=== PATIENT | female | born 2000 | race Two or more races ===

== ENCOUNTER 2022-12-31 19:15 | Inpatient (IN) ==
[2022-12-31] MEDS ORDERED: CARBOPROST TROMETHAMINE 250 MCG/ML AMP IM PRN (19:25)
[2022-12-31] MEDS ORDERED: METHYLERGONOVINE 0.2 MG/1 ML AMP IM PRN (19:25)
[2022-12-31] MEDS ORDERED: TRANEXAMIC ACID 1,000 MG in SODIUM CHLORIDE 0.9% 100 ML IV PRN (19:25)
[2022-12-31] MEDS ORDERED: BUTORPHANOL 2 MG/ML VIAL IV PRN (19:25)
[2022-12-31] MEDS ORDERED: ONDANSETRON 4 MG/2 ML VIAL IV PRN (19:25)
[2022-12-31] MEDS ORDERED: miSOPROStoL 200 MCG TABLET RECTAL PRN (19:25)
[2022-12-31] MEDS ORDERED: OXYTOCIN/LR 20 UNIT/1,000 ML BAG IV ONE (19:25)
[2022-12-31] MEDS: LACTATED RINGERS 1,000 ML IV SCH (19:30)
[2022-12-31 19:56] LABS: Basophils % 0.4 % (0.0-0.8); Eosinophils # 0.3 10*3/uL (0.0-0.87); Eosinophils % 3.5 % (0.00-10.9); Hematocrit 35.6 VOL% (35.7-47.0); Hemoglobin 12.2 GM/DL (12.0-16.0); Immature Granulocytes % 0.4 %; Immature Granulocytes Absolute 0.03 #; Lymphocytes % 28.8 % (21.3-54.2); Mean Corpuscular HGB Conc 34.3 GM/DL (32-36); Mean Corpuscular Volume 80.7 FL (87-102); Mean Platelet Volume 9.4 FL (9.6-12.0); Monocytes # 0.4 10*3/uL (0.11-0.8); Monocytes % 5.4 % (1.7-12.7); Neutrophils % 61.5 % (38.7-73.9); Platelet Count 284 T/CUMM (130-400); Red Blood Count 4.41 MC/CUMM (3.8-5.5); Red Cell Distribution Width 14.5 % (9.3-17.3); White Blood Count 7.05 T/CUMM (4-12)
[2022-12-31] MEDS ORDERED: INFLUENZA VIRUS VACCINE 0.5 ML SYRINGE IM ONE ×2 (20:09→20:30)
[2022-12-31 20:15] LABS: Alanine Aminotransferase 18 U/L (13-56); Albumin 2.7 G/DL (3.4-5.0); Alkaline Phosphatase 141 U/L (45-117); Aspartate Amino Transferase 20 U/L (0-37); Bilirubin,Total < 0.39 MG/DL (0.20-1.00); Blood Urea Nitrogen 8 MG/DL (7-18); Calcium 8.8 MG/DL (8.5-10.1); Carbon Dioxide 20 MMOL/L (21-32); Chloride 110 MMOL/L (98-107); Glucose 107 MG/DL (74-106); Osmolality,Calculated 276.4 MOS/KG (273-304); Potassium 3.4 MMOL/L (3.5-5.1); Sodium 140 MMOL/L (136-145)
[2023-01-01] MEDS: MEPERIDINE 50 MG/1 ML VIAL IV PRN ×2 (03:52→06:06)
[2023-01-01] MEDS ORDERED: OXYTOCIN/LR 20 UNIT/1,000 ML BAG IV SCH (05:30)
[2023-01-01] MEDS: LACTATED RINGERS 1,000 ML IV SCH ×3 (05:30→11:06)
[2023-01-01] MEDS ORDERED: hydrOXYzine HCL 25 MG/1 ML VIAL IM PRN (07:16)
[2023-01-01] MEDS ORDERED: CITRIC ACID/SODIUM CITRATE 30 ML UDCUP PO ONE (07:16)
[2023-01-01] MEDS ORDERED: FAMOTIDINE 20 MG/2 ML VIAL IV ONE (07:16)
[2023-01-01] MEDS ORDERED: NALOXONE 0.4 MG/ML VIAL IV PRN (07:16)
[2023-01-01] MEDS ORDERED: ONDANSETRON 4 MG/2 ML VIAL IV ONE (07:16)
[2023-01-01] MEDS ORDERED: diphenhydrAMINE 50 MG/1 ML VIAL IV PRN ×2 (07:16)
[2023-01-01] MEDS ORDERED: PROMETHAZINE 25 MG/1 ML VIAL IM ONE (07:16)
[2023-01-01] MEDS ORDERED: fentaNYL 2 MCG/ROPIV 0.2% EPID 100 ML EPIDURAL SCH (07:30)
[2023-01-01] MEDS: ePHEDrine 50 MG/ML VIAL IV PRN ×3 (09:50→10:05)
[2023-01-01] MEDS ORDERED: LACTATED RINGERS 1,000 ML IV ONE (11:07)
[2023-01-01 13:41] LABS: Cord Arterial Blood HCO3 20.6 MMOL/L
[2023-01-01 13:44] LABS: Cord Venous Blood HCO3 21.9 MMOL/L
[2023-01-01] MEDS ORDERED: MEASLES/MUMPS/RUBELLA VACCINE 0.5 ML VIAL SUBCUT ONE (16:44)
[2023-01-01] MEDS ORDERED: ACETAMINOPHEN 325 MG TABLET PO PRN (16:44)
[2023-01-01] MEDS ORDERED: BISACODYL 10 MG SUPP RECTAL PRN (16:44)
[2023-01-01] MEDS ORDERED: oxyCODONE/ACETAMINOPHEN 5-325 MG TABLET PO PRN ×2 (16:44)
[2023-01-01] MEDS ORDERED: IBUPROFEN 800 MG TABLET PO PRN (16:44)
[2023-01-01] MEDS ORDERED: BENZOCAINE 20%/MENTHOL 0.5% SPRAY 56 GM CAN TOP PRN (16:44)
[2023-01-01] MEDS ORDERED: WITCH HAZEL PADS 100/JAR TOP PRN (16:44)
[2023-01-01] MEDS ORDERED: LANOLIN 50% CREAM 0.3 OZ TUBE TOP PRN (16:44)
[2023-01-01] MEDS ORDERED: DIPH/TET/ACEL PERT BOOSTER VACCINE 0.5 ML VIAL IM ONE (16:44)
[2023-01-01] MEDS ORDERED: RHO(D) IMMUNE GLOBULIN 300 MCG SYRINGE IM ONE (16:44)
[2023-01-01] MEDS ORDERED: HYDROCORTISONE 2.5% RECTAL CREAM 30 GM TUBE TOP PRN (16:44)
[2023-01-01] MEDS ORDERED: OXYTOCIN/LR 20 UNIT/1,000 ML BAG IV ONE (16:44)
[2023-01-01] MEDS: DOCUSATE SODIUM 100 MG CAPSULE PO SCH (21:51)
[2023-01-02 03:31] LABS: Basophils % 0.3 % (0.0-0.8); Eosinophils # 0.1 10*3/uL (0.0-0.87); Hematocrit 32.7 VOL% (35.7-47.0); Immature Granulocytes % 0.4 %; Immature Granulocytes Absolute 0.04 #; Lymphocytes # 2.5 10*3/uL (1.4-4.0); Lymphocytes % 23.1 % (21.3-54.2); Mean Corpuscular HGB Conc 33.6 GM/DL (32-36); Mean Corpuscular Volume 80.9 FL (87-102); Mean Platelet Volume 9.6 FL (9.6-12.0); Monocytes # 0.8 10*3/uL (0.11-0.8); Neutrophils % 68.2 % (38.7-73.9); Platelet Count 224 T/CUMM (130-400); Red Blood Count 4.04 MC/CUMM (3.8-5.5); Red Cell Distribution Width 14.5 % (9.3-17.3)
[2023-01-02] MEDS: DOCUSATE SODIUM 100 MG CAPSULE PO SCH ×2 (09:00→21:05)
[2023-01-02] MEDS: MULTIVITAMIN (PRENATAL) TABLET PO SCH (10:17)
[2023-01-02] MEDS: POTASSIUM CHLORIDE 20 MEQ TABLET PO SCH (21:08)
[2023-01-03 07:37] VITALS: BP 139/54
[2023-01-03] MEDS ORDERED: INFLUENZA VIRUS VACCINE 0.5 ML SYRINGE IM ONE (09:35)
[2023-01-03] MEDS: DOCUSATE SODIUM 100 MG CAPSULE PO SCH (09:40)
[2023-01-03] MEDS: POTASSIUM CHLORIDE 20 MEQ TABLET PO SCH (09:40)
[2023-01-03] MEDS: MULTIVITAMIN (PRENATAL) TABLET PO SCH (09:40)
[2023-01-03] MEDS ORDERED: DIPH/TET/ACEL PERT BOOSTER VACCINE 0.5 ML VIAL IM ONE (11:00)
== END 2023-01-03 12:45 | disposition home or self-care (01) | DRG 560 ==
LOC: N.LDOUT 19:15 → N.LD 19:17 → N.OB 01-01 16:30
PROVIDERS: ADMIT Obstetrics & Gynecology; ATTEND Obstetrics & Gynecology